=== PATIENT | female | born 1975 | race Caucasian/White ===

== ENCOUNTER 2018-06-06 11:17 | Inpatient (IN) | payer OTHER ==
[~2018-06-06] VITALS: Ht 167.6 cm; Wt 58.5 kg
[2018-06-06 11:26] VITALS: Ht 167.6 cm; Wt 58.5 kg
[2018-06-06 12:07] LABS: BASOPHIL % 0.6 % (0-2)
[2018-06-06 12:10] LABS: PLATELET COUNT 438 x10^3mcL (130-400); RED CELL DISTRIBUTION WIDTH 20.2 % (11.5-14.5)
[2018-06-06 12:16] LABS: CALCIUM 8.7 mg/dL (8.5-10.1); CARBON DIOXIDE 29.9 mmol/L (21-32); CHLORIDE SERUM 104 mmol/L (98-107); CREATININE SERUM 0.8 mg/dL (0.6-1.0); GFR1 > 60 mL/min; GLUCOSE SERUM 102 mg/dL (74-106); POTASSIUM SERUM 3.6 mmol/L (3.5-5.1); SODIUM SERUM 140 mmol/L (136-145)
[2018-06-06 12:20] LABS: ALBUMIN 3.4 g/dL (3.4-5.0); ALKALINE PHOSPHATASE 117 U/L (46-116); ALT/SGPT 28 U/L (14-59); AST/SGOT 23 U/L (15-37); BILIRUBIN TOTAL 0.16 mg/dL (0.20-1.00); TOTAL PROTEIN, SERUM 7.1 g/dL (6.4-8.2)
[2018-06-06 13:12] LABS: TOTAL IRON BINDING CAPACITY 438 ug/dL (250-450)
[2018-06-06 13:15] LABS: IRON 7 ug/dL (50-170)
[2018-06-06] MEDS ORDERED: ZYRTEC10 MG PO (13:43)
[2018-06-06 15:05] LABS: MAGNESIUM 2.1 mg/dL (1.8-2.4); PHOSPHOROUS 3.4 mg/dL (2.5-4.9)
[2018-06-06 15:07] LABS: CHOLESTEROL/HDL RATIO 4.9
[2018-06-06 15:12] LABS: T3 TOTAL 1.23 ng/mL
[2018-06-06 15:47] VITALS: BP 124/77
[2018-06-06 15:53] LABS: FREE T4 0.5 ng/dL (0.76-1.46); FREE THYROXINE INDEX 1.8 ug/dL (1.4-4.5); T4(THYROXINE) 5.6 ug/dL (4.7-13.3)
[2018-06-06 17:07] VITALS: BP 131/81
[2018-06-06 21:17] VITALS: BP 137/79
[2018-06-06 22:45] LABS: microscopic required? YES; urine erythrocyte TRACE (NEGATIVE)
[2018-06-06 22:53] LABS: AMPHETAMINE QUAL UR NONE DETECTED (See below)
[2018-06-07 05:32] VITALS: BP 118/79
[2018-06-07 09:16] VITALS: BP 110/70
[2018-06-07 10:07] LABS: BASOPHIL % 0.7 % (0-2)
[2018-06-07 10:12] LABS: PLATELET COUNT 466 x10^3mcL (130-400); RED CELL DISTRIBUTION WIDTH 20.2 % (11.5-14.5)
[2018-06-07 10:26] LABS: CALCIUM 9.4 mg/dL (8.5-10.1); CARBON DIOXIDE 28.4 mmol/L (21-32); CHLORIDE SERUM 101 mmol/L (98-107); CREATININE SERUM 0.8 mg/dL (0.6-1.0); GFR1 > 60 mL/min; GLUCOSE SERUM 98 mg/dL (74-106); MAGNESIUM 2.2 mg/dL (1.8-2.4); PHOSPHOROUS 3.8 mg/dL (2.5-4.9); POTASSIUM SERUM 3.6 mmol/L (3.5-5.1); SODIUM SERUM 139 mmol/L (136-145)
[2018-06-07 13:51] VITALS: BP 137/82
[2018-06-07 17:46] VITALS: BP 123/70
[2018-06-07 21:15] VITALS: BP 125/76
[2018-06-08 05:26] VITALS: BP 105/53
[2018-06-08 06:27] LABS: BASOPHIL % 1.6 % (0-2); PLATELET COUNT 391 x10^3mcL (130-400)
[2018-06-08 06:36] LABS: CALCIUM 9.4 mg/dL (8.5-10.1); CARBON DIOXIDE 29.2 mmol/L (21-32); CHLORIDE SERUM 103 mmol/L (98-107); CREATININE SERUM 0.7 mg/dL (0.6-1.0); GFR1 > 60 mL/min; GLUCOSE SERUM 95 mg/dL (74-106); MAGNESIUM 2.2 mg/dL (1.8-2.4); PHOSPHOROUS 4.7 mg/dL (2.5-4.9); POTASSIUM SERUM 4.2 mmol/L (3.5-5.1); SODIUM SERUM 139 mmol/L (136-145)
[2018-06-08 07:06] LABS: RED CELL DISTRIBUTION WIDTH 19.8 % (11.5-14.5)
[2018-06-08 10:34] VITALS: BP 129/78
[2018-06-08] MEDS ORDERED: PREHO PR (13:12)
[2018-06-08 13:16] VITALS: BP 129/78
[2018-06-08 13:33] VITALS: BP 132/84
== END 2018-06-08 14:22 | disposition home or self-care (01) | DRG 394 ==
LOC: ED 11:17 → MU 13:44 → DU 13:44 → MU 14:41 → DU 14:41 → MU 15:34 → DU 15:37
PROVIDERS: Emergency Medicine; Family Medicine; Internal Medicine
PROC: 0W3P8ZZ Control Bleeding in Gastrointestinal Tract, Via Natural or Artificial Opening Endoscopic (ICD-10-PCS; principal; 2018-06-08 12:30)
PROC: 0D5P8ZZ Destruction of Rectum, Via Natural or Artificial Opening Endoscopic (ICD-10-PCS; 2018-06-08 12:30)
DX: K64.8 Other hemorrhoids (principal); D62 Acute posthemorrhagic anemia; N39.0 Urinary tract infection, site not specified; K58.9 Irritable bowel syndrome, unspecified; F41.9 Anxiety disorder, unspecified; E78.5 Hyperlipidemia, unspecified; Z68.20 Body mass index [BMI] 20.0-20.9, adult
CPT/HCPCS: 45378; 46221; 83880; 84439; 87046; 87046-59; C9113; J0690; J1200; J1610; J2001; J2250; J2310; J2916; J3010; J3490; J7030; Q0092